=== PATIENT | male | born 1990 | race Caucasian/White ===

== ENCOUNTER 2022-08-07 09:22 | Emergency (ER) | payer MEDICAID ==
[~2022-08-07] VITALS: Ht 188 cm; Wt 150.0 kg
[2022-08-07 09:29] VITALS: BP 139/78
[2022-08-07] MEDS ORDERED: TC025C15 TP (11:29)
[2022-08-07] MEDS ORDERED: IBUP-1525 MT (11:29)
[2022-08-07] MEDS ORDERED: ACET-2708 MT (11:29)
== END 2022-08-07 11:47 | disposition home or self-care (01) ==
LOC: ER 09:22
DX: M25.572 Pain in left ankle and joints of left foot (principal)
CPT/HCPCS: 73610; 99283